=== PATIENT | female | born 1975 | race American Indian/Alaskan Native ===

== ENCOUNTER 2020-10-01 20:56 | Emergency (ER) | payer OTHER | END 2020-10-01 22:23 | disposition left against medical advice (07) | LOC: DL.ED 20:56 | DX: Z53.21 Procedure and treatment not carried out due to patient leaving prior to being seen by health care provider (principal) ==

== ENCOUNTER 2020-10-03 15:00 | Emergency (ER) | payer BC, OTHER ==
[2020-10-03] MEDS ORDERED: Orphenadrine 60 MG/2 ML Inj IM ONE (15:37)
[2020-10-03] MEDS ORDERED: Ketorolac 30 MG/ML SDV IM ONE (15:38)
[2020-10-03 15:40] VITALS: BP 142/66; PULSE 78
--- NOTE | 2020-10-03 15:58 | EDM.PDOC ---
ED HPI GENERAL MEDICAL PROBLEM - General Chief Complaint: Back Pain or Injury Stated Complaint: BACK PAIN Time Seen by Provider: 10/03/20 15:35 Source of Information: Reports: Patient, RN, RN Notes Reviewed History Limitations: Reports: No Limitations - History of Present Illness INITIAL COMMENTS - FREE TEXT/NARRATIVE: Clementina is a 45 y/o female who presents to the ED via personal vehicle with complaints of low back pain. The patient reports her pain started approximately two weeks ago, four days after moving into a new appointment. She characterizes the pain as a transient stabbing that radiates into her right anterior upper leg. She feels the pain when she performs gross position changes. She has taken multiple doses of acetaminophen and ibuprofen, as well as Epsom salt soaks, which have alleviated the pain slightly. She denies fever, shaking chills, palpitations, nausea, vomiting, abdominal pain, dysuria, hematuria, inability to void, incontinence of bowel or bladder, or saddle paraesthesia. She denies experiencing pain similar to this in the past and has no history of injury to the back or falls. Bilateral Lower Back Pain Score (Numeric/FACES): 8 - Related Data Allergies Allergy/AdvReac Type Severity Reaction Status Date / Time Penicillins Allergy Cannot Verified 08/05/15 01:24 Remember Home Meds: Home Meds Aspirin [Halfprin] 81 mg PO DAILY 04/13/14 [History] Insulin Aspart [Novolog Flexpen] 15 units SQ TIDAC 09/30/14 [History] Insulin Detemir [Levemir Flextouch] 60 units SQ DAILY 09/30/14 [History] Past Medical History HEENT History: Reports: Impaired Vision Cardiovascular History: Reports: Hypertension Endocrine/Metabolic History: Reports: Diabetes, Type I - Past Surgical History GI Surgical History: Reports: Cholecystectomy Social & Family History - Family History Family Medical History: No Pertinent Family History - Tobacco Use Tobacco Use Status *Q: Current Every Day Tobacco User Years of Tobacco use: 25 Packs/Tins Daily: 0.5 - Caffeine Use Caffeine Use: Reports: None - Recreational Drug Use Recreational Drug Use: No ED ROS GENERAL - Review of Systems Review Of Systems: Comprehensive ROS is negative, except as noted in HPI. ED EXAM,LOWER BACK PAIN/INJURY - Physical Exam Exam: See Below Exam Limited By: No Limitations General Appearance: Alert, No Apparent Distress, Obese Eye Exam: Bilateral Eye: EOMI, Normal Inspection, PERRL (3mm) Ears: Normal External Exam, Hearing Grossly Normal Nose: Normal Inspection, Normal Mucosa, No Blood Throat/Mouth: Normal Inspection, Normal Lips, Normal Teeth, Normal Gums, Normal Oropharynx, Normal Voice, No Airway Compromise Head: Atraumatic, Normocephalic Neck: Normal Inspection, Supple, Non-Tender, Full Range of Motion Respiratory/Chest: No Respiratory Distress, Lungs Clear, Normal Breath Sounds, No Accessory Muscle Use, Chest Non-Tender Cardiovascular: Normal Peripheral Pulses, Regular Rate, Rhythm, No Edema, No Gallop, No JVD, No Murmur, No Rub GI/Abdominal: Normal Bowel Sounds, Soft, Non-Tender, No Distention, No Abnormal Bruit, No Mass, Pelvis Stable (Female) Exam: Deferred Rectal (Female) Exam: Deferred Back Exam: Full Range of Motion, Muscle Spasm (To right, radiates into hip and anterior upper leg). No: CVA Tenderness (L), CVA Tenderness (R), Paraspinal Tenderness, Vertebral Tenderness Extremities: Normal Inspection, Normal Range of Motion, Non-Tender, No Pedal Edema, Normal Capillary Refill. No: Joint Swelling, Leg Pain, Increased Warmth, Mottled, Pallor, Redness Neurological: Alert, Normal Mood/Affect, Normal Dorsiflexion, CN II-XII Intact, Normal Plantar Flexion, Normal Gait, Normal Reflexes, No Motor/Sensory Deficits, Oriented x 3, Straight Leg Raise (L), Straight Leg Raise (R). No: Saddle Anesthesia, Difficulty Walking Psychiatric: Normal Affect, Normal Mood Skin Exam: Warm, Dry, Intact, Normal Color, No Rash. No: Cyanosis, Ecchymosis, Erythema, Jaundice, Mottled, Pallor, Petechiae Course - Vital Signs Last Recorded V/S: Last Vital Signs Temp 97.2 F 10/03/20 15:26 Pulse 78 10/03/20 15:26 Resp 14 10/03/20 15:26 BP 142/66 H 10/03/20 15:26 Pulse Ox 99 10/03/20 15:26 - Orders/Labs/Meds Labs: Laboratory Tests 10/03/20 10/03/20 Range/Units 15:30 15:30 Urine Color Yellow (YELLOW) Urine Appearance Clear (CLEAR) Urine pH 6.0 (5.0-9.0) Ur Specific [place] >= 1.030 (1.005-1.030) Urine Protein Negative (NEGATIVE) Urine Glucose (UA) 500 H (NEGATIVE) Urine Ketones 15 H (NEGATIVE) Urine Occult Blood Trace-intact H (NEGATIVE) Urine Nitrite Negative (NEGATIVE) Urine Bilirubin Negative (NEGATIVE) Urine Urobilinogen 0.2 (0.2-1.0) mg/dL Ur Leukocyte Esterase Negative (NEGATIVE) Urine RBC 0-5 (0-5) /HPF Urine WBC 0-5 (0-5/HPF) /HPF Ur Epithelial Cells Few (NOT SEEN) /HPF Urine Bacteria Few (0-FEW/HPF) /HPF Urine HCG, Qual Negative Meds: Medications Discontinued Medications Generic Name Dose Route Start Last Admin Trade Name Freq PRN Reason Stop Dose Admin Ketorolac Tromethamine 60 mg 10/03/20 15:38 10/03/20 15:52 Ketorolac 30 Mg/Ml Sdv IM 10/03/20 15:39 60 mg ONETIME ONE Administration Orphenadrine Citrate 60 mg 10/03/20 15:37 10/03/20 15:52 Orphenadrine 60 Mg/2 Ml Inj IM 10/03/20 15:38 60 mg ONETIME ONE Administration - Radiology Interpretation Free Text/Narrative:: [facility] Final Radiology Report Call: [phone] assistance Online chat: [email or web address] Name: CLEMENTINA ESCOBEDO Age: 45Years F Date: 10/03/2020 SSN: -- : [id number] Study: CR LUMBAR SPINE 2 OR 3V Requesting Physician: Randi Farrar Images: 3 Addl Studies: Provided Clinical History: Acute low back pain; Radiates into RLE Contrast: Contrast Medium: Contrast Amount: Contrast Method: CONFIDENTIALITY STATEMENT This report is intended only for use by the referring physician, and only in accordance with law. If you received this in error, call [phone]. Page 1 of 1 PROCEDURE INFORMATION: Exam: XR Lumbosacral Spine Exam date and time: 10/03/2020 3:38 PM Age: 45 years old Clinical indication: Other: Pain x 3 weeks; Additional info: Acute low back pain; Radiates into rle TECHNIQUE: Imaging protocol: XR of the lumbosacral spine. Views: 2 or 3 views. COMPARISON: No relevant prior studies available. FINDINGS: Bones/joints: No malalignment. Vertebral body heights are maintained. Mild multilevel degenerative changes noted. Mild degenerative changes in the bilateral SI joints slightly worse on the left. Soft tissues: Unremarkable. Intraperitoneal space: Soft tissues notable for right upper quadrant surgical clips. IMPRESSION: Mild multilevel degenerative spondylopathy Thank you for allowing us to participate in the care of your patient. Dictated and Authenticated by: Red Parker MD 10/03/2020 4:07 PM Central Time ([place] & [place]) - Re-Assessments/Exams Free Text/Narrative Re-Assessment/Exam: 10/03/20 Toradol 60mg IM and Orphenadrine 60mg IM administered. UA sent. Lumbar x-ray obtained. Patient verbalized improvement in pain following medication administration. Findings of examination, lab work, and imaging reviewed with patient. Will treat muscle spasm with orphenadrine. Physical therapy referral filled out by expert medical writer and given to patient with discharge instructions. Discussed supportive cares for muscle spasm as well as red flag signs and symptoms which would warrant reevaluation. Patient and verbalized understanding and agreement with the plan of care. Departure - Departure Time of Disposition: 16:26 Disposition: Home, Self-Care 01 Condition: Good Clinical Impression: Degenerative lumbar disc, Degenerative joint disease of sacroiliac joint Acute low back pain with right-sided sciatica Qualifiers: Back pain laterality: right Qualified Code(s): M54.41 - Lumbago with sciatica, right side - Discharge Information *PRESCRIPTION DRUG MONITORING PROGRAM REVIEWED*: Not Applicable *COPY OF PRESCRIPTION DRUG MONITORING REPORT IN PATIENT CARMELA: Not Applicable Instructions: Sciatica, Degenerative Disk Disease Referrals: PCP,None [Primary Care Provider] - Forms: ED Department Discharge Additional Instructions: Rx: orphenadrine 1.) Follow up with your primary care provider regarding today's visit. 2.) You may alternate heat and ice to the affected area as pain persists; 20 minutes, every hour. 3.) You may take ibuprofen (Advil/Motrin) 400mg every six hours, as pain and swelling persists. You may also take acetaminophen (Tylenol) 650mg every six hours, as pain persists. You may stagger these medications so you are receiving a dose every three hours. NO IBUPROFEN FOR 24 HOURS FOLLOWING TORADOL INJECTION. 4.) You may apply BioFreeze or Bengay cream to lower back, as pain persists. 5.) Follow up with physical therapy.
--- NOTE | 2020-10-03 16:08 | CR ---
PROCEDURE INFORMATION: Exam: XR Lumbosacral Spine Exam date and time: 10/03/2020 3:38 PM Age: 45 years old Clinical indication: Other: Pain x 3 weeks; Additional info: Acute low back pain; Radiates into rle TECHNIQUE: Imaging protocol: XR of the lumbosacral spine. Views: 2 or 3 views. COMPARISON: No relevant prior studies available. FINDINGS: Bones/joints: No malalignment. Vertebral body heights are maintained. Mild multilevel degenerative changes noted. Mild degenerative changes in the bilateral SI joints slightly worse on the left. Soft tissues: Unremarkable. Intraperitoneal space: Soft tissues notable for right upper quadrant surgical clips. IMPRESSION: Mild multilevel degenerative spondylopathy
== END 2020-10-03 16:32 | disposition home or self-care (01) ==
LOC: DL.ED 15:00
DX: M51.16 Intervertebral disc disorders with radiculopathy, lumbar region (principal); M53.3 Sacrococcygeal disorders, not elsewhere classified; I10 Essential (primary) hypertension; E10.9 Type 1 diabetes mellitus without complications; Z79.82 Long term (current) use of aspirin; Z88.0 Allergy status to penicillin; Z72.0 Tobacco use
CPT/HCPCS: 72100; 81001; 81025; 96372; 99283; 99283-25; J1885; J2360

== ENCOUNTER 2022-01-13 18:22 | Emergency (ER) | payer BC ==
[2022-01-13] MEDS ORDERED: Oseltamivir 75 MG Cap PO ONE (18:23)
[2022-01-13 19:35] VITALS: BP 115/82; PULSE 109
[2022-01-13 20:11] LABS: CORONAVIRUS COVID-19 NAA NEGATIVE (NEGATIVE)
[2022-01-13] MEDS ORDERED: Oseltamivir 75 MG Cap ONE (20:42)
== END 2022-01-13 20:50 | disposition home or self-care (01) ==
LOC: DL.ED 18:22
DX: J10.1 Influenza due to other identified influenza virus with other respiratory manifestations (principal); I10 Essential (primary) hypertension; E10.9 Type 1 diabetes mellitus without complications; Z88.0 Allergy status to penicillin; Z79.82 Long term (current) use of aspirin; Z20.822 Contact with and (suspected) exposure to COVID-19
CPT/HCPCS: 0240U; 87081; 87430; 99283; A9270

== ENCOUNTER 2022-12-25 21:11 | Emergency (ER) | payer BC ==
[2022-12-25] MEDS ORDERED: Nitrofurantoin Monohydrate/Macrocrystalline 100 MG Cap PO ONE (21:12)
[2022-12-25 21:41] LABS: APPEARANCE,URINE CLEAR (CLEAR); BILIRUBIN,URINE NEGATIVE (NEGATIVE); COLOR,URINE YELLOW (YELLOW); GLUCOSE,URINE NEGATIVE (NEGATIVE); KETONES,URINE NEGATIVE (NEGATIVE); LEUKOCYTE ESTERASE,URINE TRACE (NEGATIVE); NITRITE,URINE NEGATIVE (NEGATIVE); OCCULT BLOOD,URINE NEGATIVE (NEGATIVE); PH,URINE 6.5 (5.0-9.0); PROTEIN,URINE NEGATIVE (NEGATIVE); UROBILINOGEN,URINE 0.2 mg/dL (0.2-1.0)
[2022-12-25 21:48] LABS: WBC,URINE 0-5 /HPF (0-5/HPF)
[2022-12-25 21:49] LABS: BACTERIA,URINE FEW /HPF (0-FEW/HPF); EPITHELIAL CELLS,URINE MODERATE /HPF (NOT SEEN); RBC,URINE 0-5 /HPF (0-5)
[2022-12-25 22:45] VITALS: BP 145/83; PULSE 99
[2022-12-25] MEDS ORDERED: Nitrofurantoin Monohydrate/Macrocrystalline 100 MG Cap ONE (22:47)
== END 2022-12-25 22:55 | disposition home or self-care (01) ==
LOC: DL.ED 21:11
DX: N30.00 Acute cystitis without hematuria (principal); I10 Essential (primary) hypertension; E10.9 Type 1 diabetes mellitus without complications; Z88.0 Allergy status to penicillin; Z79.82 Long term (current) use of aspirin
CPT/HCPCS: 81001; 81025; 87086; 99284; A9270-GY

== ENCOUNTER 2022-12-26 18:30 | Emergency (ER) | payer BC ==
[2022-12-26] MEDS ORDERED: Sodium Chloride 0.9% 10 ML Syringe FLUSH PRN (18:44)
[2022-12-26 18:58] LABS: BASOPHILS PERCENT AUTO 0.1 % (0.0-1.0); EOSINOPHILS PERCENT AUTO 2.1 % (1.0-3.0); HEMATOCRIT 42.9 % (37.0-47.0); HEMOGLOBIN 14.1 g/dL (12.0-16.0); LYMPHOCYTES PERCENT AUTO 11.4 % (20.5-50.1); MEAN CORPUSCULAR HEMOGLOBIN 28.1 pg (27.0-34.0); MEAN CORPUSCULAR HGB CONC 32.9 g/dL (33.0-35.0); MEAN CORPUSCULAR VOLUME 85.5 fL (80-100); NEUTROPHILS PERCENT AUTO 81.4 % (42.2-75.2); PLATELET COUNT,PLT 310 10^3/uL (150-450); RED BLOOD CELL COUNT 5.02 10^6/uL (4.2-5.4); WHITE BLOOD CELL COUNT,WBC 17.2 10^3/uL (5.0-10.0)
[2022-12-26] MEDS ORDERED: Sodium Chloride 0.9% 1,000 ML IV ONE (19:13)
[2022-12-26 19:18] LABS: A/G RATIO 0.9; ALANINE AMINOTRANSFERASE,ALT 26 U/L (14-59); ALBUMIN 3.7 g/dL (3.4-5.0); ALKALINE PHOSPHATASE 76 U/L (46-116); ASPARTATE AMNIOTRANSFERASE,AST 15 U/L (15-37); BILIRUBIN TOTAL 0.3 mg/dL (0.2-1.0); BLOOD UREA NITROGEN,BUN 9 mg/dL (7-18); BUN/CREATININE RATIO 9.2 (No establ ref range); C-REACTIVE PROTEIN 3.21 ng/dL (<=0.30); CALCIUM 8.8 mg/dL (8.5-10.1); CARBON DIOXIDE,CO2 24 mmol/L (21-32); CHLORIDE,CL 104 mmol/L (98-107); CREATININE 0.98 mg/dL (0.55-1.02); GLUCOSE RANDOM 120 mg/dL (70-99); MAGNESIUM 1.9 mg/dL (1.8-2.4); PROTEIN TOTAL,TP 7.7 g/dL (6.4-8.2); SODIUM,NA 136 mmol/L (136-145)
[2022-12-26 19:21] VITALS: BP 130/100; PULSE 120
[2022-12-26 19:24] LABS: ESTIMATED GFR 73 mL/min (>=60)
[2022-12-26 19:48] LABS: CORONAVIRUS COVID-19 NAA NEGATIVE (NEGATIVE); INFLUENZA A NAA NEGATIVE (NEGATIVE); INFLUENZA B NAA NEGATIVE (NEGATIVE)
[2022-12-26 19:55] LABS: APPEARANCE,URINE CLEAR (CLEAR); BILIRUBIN,URINE NEGATIVE (NEGATIVE); COLOR,URINE YELLOW (YELLOW); GLUCOSE,URINE NEGATIVE (NEGATIVE); KETONES,URINE NEGATIVE (NEGATIVE); LEUKOCYTE ESTERASE,URINE TRACE (NEGATIVE); NITRITE,URINE NEGATIVE (NEGATIVE); OCCULT BLOOD,URINE SMALL (NEGATIVE); PROTEIN,URINE NEGATIVE (NEGATIVE); UROBILINOGEN,URINE 0.2 mg/dL (0.2-1.0)
[2022-12-26 19:57] LABS: BACTERIA,URINE FEW /HPF (0-FEW/HPF); EPITHELIAL CELLS,URINE MODERATE /HPF (NOT SEEN); RBC,URINE 0-5 /HPF (0-5)
[2022-12-26] MEDS ORDERED: Take Home: Ondansetron 4 MG Tab.DIS, 5 Tab Pack PO ONE (20:06)
[2022-12-26] MEDS ORDERED: Ondansetron 4 MG/2 ML SDV IVPUSH ONE (20:48)
== END 2022-12-26 20:57 | disposition home or self-care (01) ==
LOC: DL.ED 18:30
DX: F41.9 Anxiety disorder, unspecified (principal); I10 Essential (primary) hypertension; E10.9 Type 1 diabetes mellitus without complications; Z88.0 Allergy status to penicillin; Z79.82 Long term (current) use of aspirin; Z79.4 Long term (current) use of insulin; Z90.49 Acquired absence of other specified parts of digestive tract; Z20.822 Contact with and (suspected) exposure to COVID-19
CPT/HCPCS: 0240U; 36415; 80053; 81001; 83605; 83735; 84484; 85025; 85379; 86140; 87040; 93005; 93010; 96374; 99284; 99285-25; J2405; J3490; J7030; Q0162

== ENCOUNTER 2025-02-02 20:37 | Emergency (ER) | payer BC ==
[2025-02-02 20:51] LABS: APPEARANCE,URINE CLEAR (CLEAR); GLUCOSE,URINE 500 (NEGATIVE); OCCULT BLOOD,URINE NEGATIVE (NEGATIVE)
[2025-02-02] MEDS: Glucose Gel 15 GM in 37.5 GM Tube PO ONE ×2 (22:03→23:45)
[2025-02-02] MEDS: Glucose Gel 15 GM in 37.5 GM Tube ONE (22:18)
[2025-02-02 23:34] VITALS: BP 124/78; PULSE 98
[2025-02-05 11:47] LABS: C.TRACHOMATIS BY TMA Negative (Negative); N.GONORRHOEAE BY TMA Negative (Negative)
== END 2025-02-03 | disposition home or self-care (01) ==
LOC: DL.ED 20:37
DX: N89.8 Other specified noninflammatory disorders of vagina (principal); N95.9 Unspecified menopausal and perimenopausal disorder; E10.649 Type 1 diabetes mellitus with hypoglycemia without coma; R30.0 Dysuria; R81 Glycosuria; I10 Essential (primary) hypertension; F17.210 Nicotine dependence, cigarettes, uncomplicated; Z88.0 Allergy status to penicillin; Z79.82 Long term (current) use of aspirin; Z79.4 Long term (current) use of insulin; Z86.16 Personal history of COVID-19
CPT/HCPCS: 81003; 82947; 86592; 87210; 87389; 87491; 87591; 99283; A9270; 36415